=== PATIENT | male | born 1940 | race Caucasian/White ===

== ENCOUNTER 2017-01-03 08:58 | Outpatient (CLI) | payer MEDICARE, OTHER ==
[~2017-01-03] VITALS: Ht 185.4 cm; Wt 85.0 kg
[~2017-01-03 08:58] MED LIST: ADVAIR 250-501 EACH INH; ALDACTONE25 MG PO; AMOXICILLIN250 MG PO; ATROVENT I0.5 MG/2.5 INH; BACTRIM DS1 TAB PO; BREO ELLIPTA 11 EACH INH; CALCIUM 600 +1 EACH PO; CITRACAL+D(315M1 TAB PO; COLACE100 MG PO; COZAAR50 MG PO; DELTASONE10 MG PO; DELTASONE20 MG PO; DELTASONE5 MG PO; DIFLUCAN100 MG PO; DULCOLAX5 MG PO; HUMIBID LA (MU600 MG PO; INCRUSE ELLI62.5 MCG INH; IPRAT-ALBUT 0.5-3 ML INH; LACTINEX (FLORA1 TAB PO; LEVAQUIN 750 M750 MG PO; LEVAQUIN500 MG PO; LEVAQUIN750 MG PO; LEVOTHROID (SY88 MCG PO; MIRALAX17 GM PO; NORCO 5-325 MG1 TAB PO; OCEAN NASAL) (A44 ML NOSE; OXYGEN M-15 INH; PHENERGAN WITH15 ML PO; REMERON15 MG PO; SENOKOT S (S1 TABLET PO; TESSALON PERLE100 MG PO; THERAGRAN-M1 TAB PO; TYLENOL EXTRA500 MG PO; TYLENOL325 MG PO; ZANTAC (NON-FO150 MG PO
--- NOTE | 2017-01-03 09:15 | NUR ---
Patient admitted as a Clinical to a room for a blood transfusion and Vancomycin infusion. Patients Hgb was 7.9. Patient has a history of leukemia and NHL. Patient wears O2 at 2-3 l/nc at all times. Denies discomfort. Portacath to his R) upper chest patent with good blood return. Patient and state that he fell about 2 wks ago at home.
[2017-01-03] MEDS ORDERED: LEVAQUIN500 MG PO (11:21)
[2017-01-03] MEDS ORDERED: ALBUTEROL2.5 MG/31 INH (11:21)
--- NOTE | 2017-01-03 18:35 | NUR ---
Discharge instructions given to the patient and regarding his home medications and to return tomorrow afternoon for another Vancomycin infusion. Patient received 2 units of PRBC's and Vancomycin 1000 mg IV over 1 hr. Portacath was not flushed with saline after the Vancomycin infusion was complete per Dr orders. [facility] and accompanied by INSURANCE CLAIMS ADJUSTER and his for dismissal.
--- NOTE | 2017-01-04 13:45 | NUR ---
Patient returned today at 1345 from home for an outpt Vancomycin infusion. Portacath to his R) chest flushes well with good blood return. Patient short of breath with activity and wears O2 at 2-3 l/nc at all times. Denies discomfort. No changes to his physical assessment from yesterday. Vancomycin 1000 mg IV given over 1 hr. Portacath was not flushed with normal saline after the infusion per Dr orders. Patient up to the bathroom to void x 1. Patient dismissed per wheelchair and accompanied by CASE CONSULTANT and his .
[2017-01-07] MEDS ORDERED: KEFLEX500 MG PO (13:32)
[2017-01-07] MEDS ORDERED: KCL UD LIQ20 MEQ/15 PO (13:33)
== END 2017-01-06 21:00 ==
LOC: GMSU 08:58 → GMIS 08:58 → GMSU 18:35 → GMIS 18:35
DX: D64.9 Anemia, unspecified (principal); D70.9 Neutropenia, unspecified; R50.9 Fever, unspecified; R63.4 Abnormal weight loss; R10.32 Left lower quadrant pain; R53.1 Weakness; R29.6 Repeated falls
CPT/HCPCS: J0696; J1200; J2001; J3370; J7040; J7050; P9053; P9058

== ENCOUNTER 2017-01-04 13:24 | Outpatient (CLI) | payer MEDICARE, OTHER ==
[~2017-01-04 13:24] MED LIST changes: +ALBUTEROL2.5 MG/31 INH
== END 2017-01-04 15:40 | disposition disaster alternative care site (69) ==
LOC: GMIS 13:24 → GMSU 13:24 → GMIS 15:40
DX: D46.22 Refractory anemia with excess of blasts 2 (principal); D70.9 Neutropenia, unspecified; R50.9 Fever, unspecified; R53.1 Weakness; R10.32 Left lower quadrant pain; R29.6 Repeated falls
CPT/HCPCS: J3370; J7050

== ENCOUNTER → 2017-01-06 | Outpatient (CLI) | payer MEDICARE, OTHER ==
[~2017-01-06] MED LIST changes: +KCL UD LIQ20 MEQ/15 PO; +KEFLEX500 MG PO
== END | disposition disaster alternative care site (69) ==
LOC: GOPP 12:30 → GMIS 13:29
DX: D46.22 Refractory anemia with excess of blasts 2 (principal); R58 Hemorrhage, not elsewhere classified
CPT/HCPCS: J0696; J2001; J7040; P9053

== ENCOUNTER 2017-01-07 09:44 | Inpatient (IN) | payer MEDICARE, OTHER ==
[~2017-01-07] VITALS: Ht 185.4 cm; Wt 87.9 kg
--- NOTE | ~2017-01-07 | ER ---
PATIENT'S NAME: SHYLA HEARD [facility] AGE: 76 Y [address] ROOM: [place] [address] LOCATION: GPCU ADMIT DATE: 01/07/2017 ER/Outpatient Report DISCHARGE DATE: FAMILY PHYSICIAN: Roberto Carlos Mullen MD ATTENDING PHYSICIAN: MARCELLUS DRAKE TIME OF ARRIVAL: 0944 hours. TIME SEEN: 0948 hours. IDENTIFICATION: A 76-year-old male. CHIEF COMPLAINT: Bleeding from port removal site. 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 He received chemotherapy and has been in remission since that time. The patient now has a refractory anemia with excessive blasts versus developing acute nonlymphocytic leukemia. He also has myelodysplastic syndrome. He had packed red blood cells transfused last weekend. Yesterday, his platelet count was 31,000 and he had 1 unit of platelets and has port removed by Dr. Martin for cellulitis around that port. Prior to that, he had received some vancomycin through the port for Coag-negative Staph bacteremia and port cellulitis. It seemed to be worsening, not improving, so they did have the port removed yesterday. Throughout the night, he had bleeding that has not been controlled despite pressure. On arrival today, the patient is complaining of pain around that port. He denies any other pain or problems. ALLERGIES: NO KNOWN DRUG ALLERGIES. CURRENT MEDICATIONS: 1. Breo-Ellipta 100 mcg/25 inhalation q.a.m. 2. Calcium plus D3 600/200 q.a.m. 3. Colace 100 mg twice a day. 4. Fluconazole 100 mg daily. 5. Incruse-Ellipta 62.5 mcg q.a.m. 6. Keflex 500 mg 4 times a day for 10 days. 7. Levofloxacin 500 mg daily. 8. Levothyroxine 88 mcg daily. PATIENT'S NAME: SHYLA HEARD [facility] AGE: 76 Y [address] ROOM: [place] [address] LOCATION: GPCU ADMIT DATE: 01/07/2017 ER/Outpatient Report DISCHARGE DATE: FAMILY PHYSICIAN: Roberto Carlos Mullen MD ATTENDING PHYSICIAN: MARCELLUS DRAKE 9. KCl 20 mEq t.i.d. 10. Ranitidine 150 mg b.i.d. 11. Tylenol Extra 500 mg q.a.m. MEDICAL PROBLEMS: 1. Myelodysplastic syndrome/acute nonlymphocytic leukemia. 2. History of immunoblastic diffuse large B-cell lymphoma in remission. 3. Colonic polyposis. 4. Colonic diverticulosis. 5. COPD. 6. Hypothyroidism. 7. Gastroesophageal reflux disease. 8. Osteoarthritis. 9. Right port cellulitis. 10. Coag-negative Staph bacteremia. 11. Cataracts. 12. Mixed hyperlipidemia. 13. Hypertension. 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 15. Cluster headaches. 16. Celiac sprue. 17. Grade 1 diastolic dysfunction. 18. Moderate aortic regurgitation. 19. Atherosclerotic vascular disease leading to an abdominal aneurysm repair in 2013. 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 SOCIAL HISTORY: The patient is . He lives in [place], [place], a son in [place], [place], a son in [place], and a son in [place]. Tobacco use, he is a former smoker. Alcohol use, denies. Drug use, denies. IMMUNIZATIONS: Tetanus is current, pneumococcal vaccine in 2010, influenza vaccine given this year. FAMILY HISTORY: Father of acute leukemia at age 51. Mother of diabetes mellitus at age 67. PATIENT'S NAME: SHYLA HEARD [facility] AGE: 76 Y [address] ROOM: [id number] [place], [place] [address] LOCATION: [facility] ADMIT DATE: 01/07/2017 ER/Outpatient Report DISCHARGE DATE: FAMILY PHYSICIAN: Roberto Carlos Mullen MD ATTENDING PHYSICIAN: MARCELLUS DRAKE REVIEW OF SYSTEMS: All systems reviewed and negative other than what is noted in the HPI. PHYSICAL EXAMINATION: VITAL SIGNS: Weight 86 kg. Pulse 92, respirations 22, temp 99.3, sats 95%, and blood pressure 135/85. GENERAL: This is a 76-year-old male in no acute distress. HEENT: Head: Normocephalic, atraumatic. Ears: TMs translucent both ears. Eyes: Pupils equal and reactive to light and accommodation. Extraocular movements intact. Nose: Mucosa pink. No lesions. Mouth: No lesions. Pharynx benign. NECK: Supple. No lymphadenopathy. LUNGS: Clear to auscultation. HEART: Regular rate and rhythm. ABDOMEN: Soft, nondistended, nontender. SKIN: Granite, warm, and dry. EMERGENCY DEPARTMENT COURSE: The patient has an incision where the Port-A-Cath was removed in his right upper chest that does have active bleeding from that site. Direct pressure was held for 15 minutes and the bleeding improved. It did not completely resolve, but improved significantly. We did place Surgicel pad and a pressure dressing over this with no further bleeding noted. LABORATORY DATA: Lab work was obtained. Chest x-ray, no acute process, pending Radiology over- read. Lactate elevated at 2.1. Sodium 141, potassium 2.8, which is stable from yesterday, chloride 104, CO2 26, BUN 13, creatinine 2.0, which is up from 1.9 yesterday, up from 0.9 October of 2016, and blood sugar 92. Albumin low at 2.7, AST 63, ALT less than 10, hemoglobin 9.8, daughter says it was 10.6 in the office yesterday, hematocrit 30.2, platelets 31, platelet count reportedly yesterday was 15,000, prior to the platelets, 80,000 after the platelets. White blood cell count today 21.7, white blood cell count yesterday was 13.4. White blood cell differential includes 6% segs or 1300 absolute segs, 1500 total neutrophil count, and lymphocytes 26%. Procalcitonin elevated at 0.32. UA specific gravity 1.005, pH 7, rare white cells, 5-10 red cells, and 0-2 epithelial cells. Blood cultures x2 pending. Urine culture pending. IMPRESSION: 1. Bleeding from Port-A-Cath site controlled with dressing and pressure. 2. Myelodysplasia with significant thrombocytopenia 1 unit of platelets have been ordered. 3. Hypokalemia KCl 40 mEq and 250 of normal saline to run over 4 hours. 4. Right Port-A-Cath site cellulitis with possible sepsis, vancomycin per pharmacy protocol, cefepime 2 mg IV now. Cultures are all pending. PATIENT'S NAME: SHYLA HEARD [facility] AGE: 76 Y [address] ROOM: [place] [address] LOCATION: [facility] ADMIT DATE: 01/07/2017 ER/Outpatient Report DISCHARGE DATE: FAMILY PHYSICIAN: Roberto Carlos Mullen MD ATTENDING PHYSICIAN: MARCELLUS DRAKE 5. Myelodysplasia, hemoglobin appears to be stable at this time. 6. Acute nonlymphocytic leukemia. PLAN: Plan for admission per Hospitalist Service and Dr. Ruggiero his oncologist was notified. The patient understands and agrees and all questions have been answered. MD SHARMILA HAMMER/modl /[id number] d: 01/08/17 0122 t: 01/08/17 1443, OUTPATIENT REPORT
--- NOTE | ~2017-01-07 | HP ---
PATIENT'S NAME: SHYLA HEARD [facility] AGE: 76 Y [address] ROOM: [address] [place], [place] [address] LOCATION: GPCU ADMIT DATE: 01/07/2017 History & Physical DISCHARGE DATE: FAMILY PHYSICIAN: Roberto Carlos Mullen MD ATTENDING PHYSICIAN: MARCELLUS DRAKE DATE OF SERVICE: CHIEF COMPLAINT: Sepsis, pancytopenia, neutropenia. HISTORY OF PRESENT ILLNESS: This is a 76-year-old male with history of AML, on chemo, and closely follows up with Dr. Ruggiero, who presents to the emergency room with complaints of bleeding from the chest port site. The patient had just had a port catheter removed yesterday because of concerns of an infection to the site. The patient is also known to have pancytopenia related to his ongoing treatment of chemo. The patient has been on antibiotic for the last 2 weeks for concerns of cellulitis and an infection stemming from the port access site on his right subclavian site, and he had been on vancomycin and Levaquin for 2 weeks. Despite treatment with antibiotics for several days, the patient continued to have ongoing concern for un-resolving infection, and at that point it was decided the port to be removed. Shortly after the port was removed, the patient returns to the emergency room here today due to having ongoing bleeding from the site. During evaluation at the emergency room, the patient was also noted to have a white blood cell count of 21,000 which is significantly elevated from what is baseline for him. The patient also appears more lethargic and ill-appearing overall from all these. The patient has not had chemo in the last 4 weeks, mostly due to complications stemming from concern for a bloodstream infection treatment required for that. During my visit today, the patient states that he feels like a lot has been going on and he is kind of exhausted with everything, but does not in particular mention any specific symptoms. Denies any new cough, chest pain, shortness of breath, abdominal pain, nausea, vomiting, diarrhea, or constipation. He has had problems with poor appetite in the past several weeks, but particularly worse in the past 2 weeks. PAST MEDICAL HISTORY: 1. AML. 2. COPD. 3. Chronic respiratory failure. SOCIAL HISTORY: The patient is a former smoker. Denies any use of alcohol or drug abuse. PATIENT'S NAME: SHYLA HEARD [facility] AGE: 76 Y [address] ROOM: [address] [place] [address] LOCATION: GPCU ADMIT DATE: 01/07/2017 History & Physical DISCHARGE DATE: FAMILY PHYSICIAN: Roberto Carlos Mullen MD ATTENDING PHYSICIAN: MARCELLUS DRAKE FAMILY HISTORY: The patient any history of cancer, heart disease, blood pressure, or stroke in the family. REVIEW OF SYSTEMS: Ten-point review of systems was conducted and were all negative, except as mentioned in the HPI. PHYSICAL EXAMINATION: VITAL SIGNS. Blood pressure 155/85, pulse 92, respiratory rate 22, temperature 99.3, and saturating 95% on room air. GENERAL APPEARANCE: The patient is lethargic-appearing, but in no apparent distress. Awake, alert, and oriented x3. HEENT: Dry mucous membranes. Exhibits scleral icterus and conjunctival pallor. SKIN: Has diffuse jaundice. HEART: S1, S2, regular rate and rhythm. CHEST: Coarse breath sounds, but clear to auscultation bilaterally. ABDOMEN: Soft, nontender, and nondistended. Positive bowel sounds. NEURO: Grossly nonfocal. EXTREMITIES: Without edema. MUSCULOSKELETAL: No joint pain or muscle pain. LABS SIGNIFICANT: White blood cells 21.7, ANC 1.5. ASSESSMENT/PLAN: 1. Sepsis, severe. This is in the setting of pancytopenia and immune compromise due to ongoing acute myeloid leukemia and chemotherapy. There is a concern for an infection stemming from an infected port, which was removed yesterday. The patient has been getting Levaquin and electrolytes as an outpatient. Due to him not getting better clinically, I will broaden antibiotics with vancomycin and cefepime and blood cultures and urine culture again as well. 2. Acute myelogenous leukemia. In the middle of 10-cycle chemotherapy, but has not had chemo in the last 4 weeks due to ongoing concerns for an infection. Dr. Ruggiero is his oncologist and will consult him. 3. Acute kidney injury. This is related to dehydration from poor p.o. intake. We will give IV fluids, monitor in's and out's, and recheck kidney function in the morning. 4. Thrombocytopenia with active blood loss. Prepare 1 pack of platelets and transfuse. Last platelet was 31. 5. Hypokalemia. We would replace in the IV form and recheck levels. 6. Pancytopenia. 7. Deep venous thrombosis prophylaxis. Leave the SCDs. PATIENT'S NAME: SHYLA HEARD [facility] AGE: 76 Y [address] ROOM: [address] [place] [address] [facility] ADMIT DATE: 01/07/2017 History & Physical DISCHARGE DATE: FAMILY PHYSICIAN: Roberto Carlos Mullen MD ATTENDING PHYSICIAN: MARCELLUS DRAKE 8. Chronic obstructive pulmonary disease. Continue O2 supplementation. The patient is asymptomatic from a respiratory standpoint. MARCELLUS DRAKE MD BG/modl /[id number] D: [id number] T: [id number] HISTORY & PHYSICAL
--- NOTE | ~2017-01-07 | DS ---
PATIENT'S NAME: SHYLA HEARD [facility] AGE: 76 Y [address] ROOM: [place] [address] LOCATION: GPCU ADMIT DATE: 01/07/2017 Discharge Summary DISCHARGE DATE: 01/15/2017 FAMILY PHYSICIAN: Roberto Carlos Mullen MD ATTENDING PHYSICIAN: Joshua Roche SUMMARY DATE OF : 01/15/2017. PRIMARY DIAGNOSES: 1. Acute nonlymphocytic leukemia. 2. Port site infection with staphylococcus epidermidis, not septic. 3. Thrombocytopenia secondary to myelodysplastic syndrome. 4. Chronic hypoxic respiratory failure. 5. Chronic obstructive pulmonary disease. 6. Pancytopenia secondary to chemotherapy. 7. Hypokalemia. OPERATIONS AND PROCEDURES: None. HISTORY OF ILLNESS/REASON FOR ADMISSION: Please refer to the original H and P dictated on 01/07/[address] Roche. HOSPITAL COURSE: The patient was admitted to the hospital as noted above with a presumptive diagnosis of high-grade myelodysplastic syndrome and suspected sepsis. There was concern for port site infection, and he apparently did grow Staph epidermidis from this site. Blood cultures remained negative. Ultimately, he was felt to not be septic nor did he prove to be bacteremic. Antibiotics were eventually discontinued. His clinical condition gradually deteriorated. He was pancytopenic, and Hematology-Oncology did follow and provide some additional medical recommendations. There was some discussion regarding the possibility of resuming chemotherapy. However, it was felt that he was unable to tolerate any aggressive treatments, and that treatment options had essentially been exhausted. Palliative Care was involved, and eventually, the family requested to make him comfort cares only. Because of his fairly quick decline and poor clinical status, we decided to keep him on the progressive care unit. As expected, his clinical condition continued to deteriorate, and he became progressively more apneic and less responsive. On 2016, he was found to be without pulse or respirations and pronounced . Family were present and expressed no other concerns or questions. TIME OF : 2225 hours on 01/15/2017. PATIENT'S NAME: SHYLA HEARD [facility] AGE: 76 Y [address] ROOM: [place] [address] LOCATION: GPCU ADMIT DATE: 01/07/2017 Discharge Summary DISCHARGE DATE: 01/15/2017 FAMILY PHYSICIAN: Roberto Carlos Mullen MD ATTENDING PHYSICIAN: Joshua Roche PIETRO J MD SARAH LOPEZ/car /[id number] d: 02/12/17 0433 t: 02/13/17 0804, DISCHARGE SUMMARY
--- NOTE | ~2017-01-07 | CON ---
PATIENT'S NAME: SHYLA HEARD [facility] AGE: 76 Y [address] ROOM: [place] [address] LOCATION: [facility] ADMIT DATE: 01/07/2017 Consultation DISCHARGE DATE: FAMILY PHYSICIAN: Roberto Carlos Mullen MD ATTENDING PHYSICIAN: MARCELLUS DRAKE DATE OF CONSULTATION: 01/08/2017 PALLIATIVE CARE CONSULTATION LOCATION: [place] [address]. REFERRING PHYSICIAN: Dr. Caldwell. REASON FOR CONSULTATION: This is a palliative care referral for end-of-life discussion and patient and family support. HISTORY OF PRESENT ILLNESS: This 76-year-old male was admitted on 01/07/2017 with bleeding from a Port-A- Cath removal site. He has a known history of stage III immunoblastic diffuse large-cell lymphoma, which presented in his left axillary lymphadenopathy in 1994. He was receiving chemotherapy and went to remission. 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 He also has myelodysplastic syndrome. He has been getting transfusions of red blood cells, which he had last week and on 01/06/2017. His platelet count on admission was 31,000, and he had one unit of platelets. The patient also has elevated white count, questionable sepsis. He is on antibiotics. Currently, the patient denies any pain or discomfort. No nausea or vomiting, just severe fatigue. Any activity makes the patient short of breath and tires out just even standing up with walker. He had been living at home and ambulating with his walker at home but has been declining over the last few days prior to admission. Last bowel movement was on 01/08/2017. Appetite has been poor. He is down with recent diagnosis and talking with Dr. Caldwell on recurrence of his cancer and probable no other chemo. PAST MEDICAL HISTORY: AML; COPD; chronic respiratory failure; colonic polyposis in 2015 and diverticulitis in 2015; hypothyroidism; GERD; osteoarthritis; early cataracts; peripheral vascular disease due to Vincristine associated with mild ataxia; cluster headaches, resolved; celiac sprue; grade 1 diastolic dysfunction noted on echocardiogram; moderate aortic regurgitation noted on echogram, PATIENT'S NAME: SHYLA HEARD [facility] AGE: 76 Y [address] ROOM: [place] [address] LOCATION: [facility] ADMIT DATE: 01/07/2017 Consultation DISCHARGE DATE: FAMILY PHYSICIAN: Roberto Carlos Mullen MD ATTENDING PHYSICIAN: MARCELLUS DRAKE arthrosclerotic vascular disease leading to abdominal aortic aneurysm, repaired in 2013. 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 SOCIAL HISTORY: He is . Lives by [place]. 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 They have a son in [place], [place], and a son in [place], and one in [place]. They have a daughter in [place] and one in [place]. Former tobacco use. FAMILY HISTORY: Father of acute leukemia at age 51. Mother of diabetes mellitus at the age of 67. REVIEW OF SYSTEMS: Review of systems was done and is negative except as mentioned in the HPI and listed below. GI: No nausea or vomiting. Does complain of some mid epigastric pain and discomfort comes and goes, sharp. Last bowel movement was on 01/08/2017. Appetite is decreased and not eating much. : No dysuria. No frequency. He is incontinent at times due to physical functional status. NEURO: Grossly intact. Tires easily. PHYSICAL EXAMINATION: VITAL SIGNS: Temp 97.2, pulse 78, respirations 20, blood pressure 155/84, O2 sats 94% on oxygen 2 L. He is 6 feet 1 inch, weighs 186 pounds with a BMI of 24.4. GENERAL: Alert and oriented, in no acute distress. Shortness of breath and fatigue with much exertion now. SKIN: Warm and dry. Color pale. No ecchymotic areas noted on arms. HEENT: Head: Normocephalic and atraumatic. Sclerae are nonicteric. Conjunctivae are pale and pink. Mouth is pink and moist without exudate. No white patches or lesions noted under mouth and pharynx. PATIENT'S NAME: SHYLA HEARD [facility] AGE: 76 Y [address] ROOM: [facility] [place] [address] LOCATION: [facility] ADMIT DATE: 01/07/2017 Consultation DISCHARGE DATE: FAMILY PHYSICIAN: Roberto Carlos Mullen MD ATTENDING PHYSICIAN: MARCELLUS DRAKE LYMPH: No cervical adenopathy or thyromegaly. RESPIRATORY: Clear to auscultation. Breath sounds are even and regular. Labored at 28 at rest. CHEST: Large bandage noted on right upper chest from port removal. Dry and intact. CARDIAC: S1, S2 without murmurs or bruits. ABDOMEN: Soft and nontender. Positive bowel tones. No hepatosplenomegaly. NEUROLOGIC: Grossly intact. MUSCULOSKELETAL: Appropriate range of motion. Decreased muscle mass in lower extremities. EXTREMITIES: No cyanosis or deformities. Palliative performance scale is 50%, mainly sitting and lying, unable to do any work, extensive disease. Total care, intake is reduced, conscious level is full. LABORATORY DATA: Sodium 143, potassium 3.1, BUN 12, creatinine 1.0, albumin is 2.1. AST is 63, LDH is 989. White count is 20.5, hemoglobin 7.6, hematocrit 23.9, and 33,000 platelets. He is receiving 1 unit of packed red blood cells. IMPRESSION: 1. Weakness and severe fatigue. 2. Gastroesophageal reflux disease. 3. Emotional distress. PLAN: Met with the patient, his daughter, his , and daughter. Discussed the patient's overall condition, his understanding of what doctors have been telling him. The Lin and daughter is Maty. discussed the MDS, recurrent transfusions, needing more transfusion in less than a week, development of sepsis, on antibiotics, and overall declining status. The patient has a fairly good understanding of condition except he thinks that there may be chemotherapy in the future. DISCUSSION AND GOALS: 1. Goal to get over infection. 2. To try to get stronger. 3. To get back home and be with his and live as long as he can. 4. Code status and advance directive. The patient is a do not attempt resuscitation, has no advance directive. Discussed ways of getting an advance directive and gave a brochure on [employer], answered questions, and concerns on advanced directive. RECOMMENDATIONS: PATIENT'S NAME: SHYLA HEARD [facility] AGE: 76 Y [address] ROOM: [place] [address] LOCATION: [facility] ADMIT DATE: 01/07/2017 Consultation DISCHARGE DATE: FAMILY PHYSICIAN: Roberto Carlos Mullen MD ATTENDING PHYSICIAN: MARCELLUS DRAKE 1. GERD, he is on Protonix. May consider Maalox 15 mL p.r.n. heartburn, fatigue, and weakness. He is getting transfusion. He is on antibiotics. He may be too weak and short of breath to get physical therapy. We will try to order to see if it helps the patient or if he is unable to do it. Support system. The patient has 5 kids. One son in [facility], and a daughter in [place]. He has good support in the home. is his caregiver. Discussed options if the patient declines. Discussed options of home health care with transfusions continuing versus hospice. We will discuss the POLST form and hospice more after Dr. Caldwell sees him again tomorrow. Total time was 65 minutes with 55 minutes for counseling and coordination of care. LEATHA MURPHY NP FOR MD STERLING WILSON/car /[id number] d: 01/09/172232 t: 01/19/17 07, CONSULTATION REPORT
--- NOTE | ~2017-01-07 | CON ---
PATIENT'S NAME: FRANK MCCRAY [facility] AGE: 76 Y [address] ROOM: [id number] [place] [address] LOCATION: [facility] ADMIT DATE: 01/07/2017 Consultation DISCHARGE DATE: FAMILY PHYSICIAN: Roberto Carlos Mullen MD ATTENDING PHYSICIAN: MARCELLUS ROCHE REFERRING PHYSICIAN: Butch Ruggiero MD Consult to Dr. Roche. HISTORY OF PRESENT ILLNESS: Frank Mccray is a 76-year-old man, who was admitted to the hospital with poorly controlled bleeding from a surgical site, in the setting of thrombocytopenia related to a high-grade myelodysplastic syndrome, under treatment. The patient is well known to the [facility]. The last progress note dated 01/06/2017 is appended to the chart. The patient has been under therapy for 3-1/2 weeks for a port site infection with ceftriaxone, cephalexin, and vancomycin. The port site infection did not respond to therapy as hoped. Blood cultures from the port (but not the peripheral blood) revealed the presence of Staphylococcus epidermidis. The inflammation and discomfort did not resolve with prolonged outpatient empirical therapy. It was decided that the port needed to be removed. On 01/06/2017, the patient had a busy day. The patient got vancomycin at [facility] as well as IV potassium. The patient then went to the [facility] for platelet transfusion. The patient then went to the [facility] Dr. Fam Martin removed the port, and the patient went home. On the day of admission, around 0415, the patient woke up and was "lying in a pool of blood." Blood was oozing from the port site. The family applied tape and gauze and called Dr. Ruggiero who instructed them to call again if there was persistent oozing after they applied pressure for 1 hour. The family applied pressure for an hour and things improved. However, several hours later, the patient woke up again with oozing from the port site. The son worked on this and then he took the patient to the [facility] Dr. Martin was not there, so the nurses instructed the patient to report to the [facility] Room. In the [facility] Room, pressure was applied to the site by Dr. Rosa Maria Hernandes. The bleeding from the port site was controlled with dressing and pressure. It was felt prudent to admit him for observation to make sure the bleeding did not recur and felt prudent to evaluate the possibility of sepsis. The patient was admitted on Dr. Roche's hospitalist service. PATIENT'S NAME: FRANK MCCRAY [facility] AGE: 76 Y [address] ROOM: [address] [place] [id number] LOCATION: [facility] ADMIT DATE: 01/07/2017 Consultation DISCHARGE DATE: FAMILY PHYSICIAN: Roberto Carlos Mullen MD ATTENDING PHYSICIAN: MARCELLUS ROCHE initiated therapy with cefepime and linezolid and lupis blood cultures. Upon admission, the urinalysis was unremarkable. The white blood cell count was 29,700, the hemoglobin was 9.8, the MCV was 85, and the platelets were 31,000. The lab techs reported 48% nucleated red blood cells. There were 6 segs and 1 band and 26 lymphs. It should be noted that the platelets were 15,000 prior to the port removal, but then aniya to 80,000 with the transfusions that were required before the port could be removed. The CMS was remarkable for an eGFR of 33 with a creatinine of 2. The albumin was 2.7 g/dL and the potassium was 2.8 mmol/L. The LDH is 989 international units/L. The uric acid is 11.9 mg/dL. The patient is feeling reasonably well at this point. Active problems chronic and diagnosed and acute medical illnesses resolved, past surgeries, injuries are outlined on the accompanying [facility] progress note and will not be repeated here. MEDICATIONS UPON ADMISSION: 1. Acetaminophen. 2. Albuterol sulfate. 3. Calcium carbonate. 4. Cephalexin. 5. Docusate sodium. 6. Fluconazole. 7. Fluticasone/vilanterol. 8. Levofloxacin. 9. Levothyroxine sodium. 10. Polyethylene glycol. 11. KCl. 12. Ranitidine. 13. Saline nasal spray. REVIEW OF SYMPTOMS: The patient has been fatigued. He has been dehydrated. He has still been at home. He has fallen on a couple of occasions in the night and has needed standby and assist, and uses a walker. His appetite and weight are the same, but he has dyspnea on exertion if he walks 5 to 10 steps. He has persistent dysphagia at his Zen's apple and solids are sticking. The patient had dry heaves once or twice a day and nocturia once to twice a day. He is currently on day 32 of his 11th cycle of azacitidine. His transfusion requirements have increased. PHYSICAL EXAMINATION: VITAL SIGNS: Pulse 80 and regular, blood pressure 175/85, respiratory rate 88, temperature 99.2. Height 71 inches, weight 193 pounds (87.5 kg), BMI 25.5 PATIENT'S NAME: FRANK MCCRAY [facility] AGE: 76 Y [address] ROOM: [id number] [place] [id number] LOCATION: [facility] ADMIT DATE: 01/07/2017 Consultation DISCHARGE DATE: FAMILY PHYSICIAN: Roberto Carlos Mullen MD ATTENDING PHYSICIAN: MARCELLUS ROCHE kg/m2. GENERAL: A well-developed, slightly overweight, 76-year-old man, chronically ill. HEENT: Acne rosacea. Edentulous. LYMPH NODES: None palpable. NECK: Without JVD or carotid bruits. SKIN: Ecchymoses on the dorsal forearms. CHEST: Decreased breath sounds bilaterally. Chest wall, tenderness with palpation of the gauze bandage site. CV: Regular rhythm. No murmurs, bruits, or adventitious sounds. ABDOMEN: No masses, tenderness, or megaly. GENITAL AND RECTAL: Not examined. EXTREMITIES: Without peripheral edema. Pulses 2+ throughout. NEURO: The patient is alert and oriented. He moves all 4 extremities. IMPRESSION: 1. A 76-year-old man admitted for observation following a stormy postoperative course with oozing after a Port removal yesterday. 2. High-grade myelodysplastic syndrome. The patient is developing leukocytosis and refractory hypokalemia. Review of the peripheral smear reveals 17% blasts as well as nucleated red blood cells. 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 The elevated LDH and uric acid are compatible with this as well. In addition, this is the natural history of the disease to be expected. At this point, azacitidine is no longer forestalling the development of acute leukemia and there is no dependably helpful alternative. The patient is not a good candidate for clinical trial. Oral hydroxyurea to prevent symptoms of hyperleukocytosis could be employed. 3. The patient has been battling Staphylococcus epidermidis, catheter- related tunnel infection. Removing the catheter generally controls the symptoms in patients who have not been having bacteremia. It is possible the patient does have bacteremia, but it is likely he does not. It is controversial whether antibiotics need to be continued in this situation. Given his guarded prognosis with the acute leukemia, removing the catheter and just monitoring for signs and symptoms of bacteremia or endocarditis would be reasonable. Placing him on a course of expensive antibiotics is not necessarily warranted. PLAN: DIAGNOSTIC: No further testing, just as needed for comfort treatment. TREATMENT: At this point, the patient wants to continue to get platelets and red blood cell support, so hospice would not necessarily be employed but home health would. PATIENT EDUCATION: Discussed these developments. Discussed the need for a palliative care PATIENT'S NAME: FRANK MCCRAY [facility] AGE: 76 Y [address] ROOM: [place] [address] [facility] ADMIT DATE: 01/07/2017 Consultation DISCHARGE DATE: FAMILY PHYSICIAN: Roberto Carlos Mullen MD ATTENDING PHYSICIAN: MARCELLUS ROCHE consult and the futility of CPR in this situation. MELONIE AGUILERA MD [facility]/modl /[id number] CC: Roberto Carlos Mullen MD d: 01/10/17 0125 t: 01/12/17 1846, CONSULTATION REPORT
[~2017-01-07 09:44] MED LIST changes: -KCL UD LIQ20 MEQ/15 PO; -KEFLEX500 MG PO
[2017-01-07 10:23] LABS: HEMATOCRIT 30.2 % (37.0-53.0); HEMOGLOBIN 9.8 g/dL (11.0-16.0); MCH 27.5 pg (27.0-34.0); MCHC 32.5 gm/dL (32.0-36.5); MCV 84.8 fl (83.0-98.0); RBC 3.56 M/uL (3.50-5.50)
[2017-01-07 10:28] LABS: WBC 21.7 K/uL (4.0-11.0)
[2017-01-07 10:29] LABS: INR - (THERAPEUTIC) 1.2 (0.9-1.1); PLATELET COUNT 31 K/uL (150-450); PROTIME 12.7 SECONDS (9.6-11.1); PTT 27 SECONDS (25-32)
[2017-01-07 10:41] LABS: ALBUMIN 2.7 gm/dL (3.5-5.0); ALK PHOS 76 IU/L (33-138); AST 63 IU/L (10-40); BLOOD UREA NITROGEN 13 mg/dL (6-24); CALCIUM 8.2 mg/dL (8.5-10.5); CHLORIDE 104 mMol/L (96-110); CO2 26 mMol/L (22-32); SODIUM 141 mMol/L (135-145); TOTAL PROTEIN 6.9 g/dL (6.0-8.4)
[2017-01-07 10:43] LABS: ALT < 10 IU/L (12-78); ANION GAP 13.8 (10.0-19.0); ESTIMATED GFR (MDRD EQUATION) 33; POTASSIUM 2.8 mMol/L (3.7-5.1)
[2017-01-07 11:39] LABS: ABSOLUTE NEUTROPHIL CT (ANC) 1.5 K/uL (1.4-9.0); BANDED NEUTROPHIL # 0.2 K/uL (0.0-0.1); BANDED NEUTROPHILS % 1 %; LYMPHOCYTE # 5.6 K/uL (0.8-4.0); LYMPHOCYTE % 26 %; MONOCYTE # 14.8 K/uL (0.0-1.0); SEGMENTED NEUTROPHIL # 1.3 K/uL (1.4-9.0); SEGMENTED NEUTROPHIL % 6 %
[2017-01-07] MEDS ORDERED: KEFLEX500 MG PO (13:32)
[2017-01-07] MEDS ORDERED: KCL UD LIQ20 MEQ/15 PO (13:33)
--- NOTE | 2017-01-07 13:37 | NUR ---
PT is 76 y/o male admit for infected port a cath site/sepsis/cellulitis for hospitalist. Pt alert and oriented x3. Resides at home with . PT has hx Non-Hodgkins lymphoma in 1993, dx of leukemia in Nov 2015 w ongoing chemo tx, AAA with repair,hyperlipids,pneumonia,COPD,O2 continuous at 2-3 liters, bronchitis,gerd,arthritis. No med allergies. Gluten intolerance. Pt had his port a cath removed in office yesterday at the request of due to infection. reports pt woke her up to help him to the bathroom around 0400 and she noticed his former port site bleeding. She checked the bed and there was a large area where the site had bled onto the bedding. She called who gave her instructions to apply pressure. She did this but couldn't get it to stop. Family brought him to [facility] this am and then to ED.
[2017-01-07 16:40] LABS: BILIRUBIN URINE NEGATIVE (NEGATIVE); BLOOD URINE 150 /UL (NEGATIVE); GLUCOSE URINE NEGATIVE (NEGATIVE); KETONE URINE NEGATIVE (NEGATIVE); LEUKOCYTES URINE NEGATIVE /UL (NEGATIVE); NITRITE URINE NEGATIVE (NEGATIVE); PROTEIN URINE 30 mg/dL (NEGATIVE); SPEC GRAVITY URINE 1.005 (1.003-1.035); UROBILINOGEN URINE NORMAL (NORMAL)
[2017-01-07 17:13] LABS: COLOR URINE YELLOW (YELLOW); TURBIDITY URINE CLEAR (CLEAR)
[2017-01-07 17:15] LABS: WBC URINE RARE #/HPF (NEGATIVE)
[2017-01-07 17:16] LABS: BACTERIA URINE RARE (NEGATIVE); EPITHELIAL URINE 0-2 #/HPF (NEGATIVE)
--- NOTE | 2017-01-07 18:48 | NUR ---
Significant event: A&Ox3. VSS. Pressure dressing to R) chest, clean/dry/intact. Lung sounds clear/diminished, on 3L NC. Had IV K+ replacement. 1 unit of platelets given. Vancomycin and cefipime given. Denies pain. Decreased appetite. Code status changed to DNR, palliative consult. Follow Up: Continue current POC
--- NOTE | 2017-01-08 05:13 | NUR ---
Significant event: Patient A/O x 3. Dressing to right chest area is C/D/I. VSS on 2-3 L NC with sats in the mid 90's. Uses urinal at bedside with assistance. IVF infusing at 100ml/hr to L) PFA. No other complaints throughout the shift.
[2017-01-08 05:42] LABS: ALBUMIN 2.1 gm/dL (3.5-5.0); ANION GAP 14.1 (10.0-19.0); CALCIUM 7.6 mg/dL (8.5-10.5); CREATININE 1.9 mg/dL (0.6-1.3); MAGNESIUM 1.7 mg/dL (1.3-2.6); PHOSPHORUS 2.7 mg/dL (2.5-4.9); POTASSIUM 3.1 mMol/L (3.7-5.1)
[2017-01-08 06:19] LABS: MCV 85.4 fl (83.0-98.0); RDW-CV 18.8 % (11.9-14.6)
[2017-01-08 06:20] LABS: WBC 20.5 K/uL (4.0-11.0)
[2017-01-08 06:22] LABS: HEMATOCRIT 23.9 % (37.0-53.0); HEMOGLOBIN 7.6 g/dL (11.0-16.0); MCH 27.1 pg (27.0-34.0); MCHC 31.8 gm/dL (32.0-36.5); PLATELET COUNT 33 K/uL (150-450)
[2017-01-08 06:59] LABS: ABSOLUTE NEUTROPHIL CT (ANC) 0.4 K/uL (1.4-9.0); LYMPHOCYTE # 3.3 K/uL (0.8-4.0); LYMPHOCYTE % 13 %; MONOCYTE # 13.9 K/uL (0.0-1.0); SEGMENTED NEUTROPHIL # 0.4 K/uL (1.4-9.0); SEGMENTED NEUTROPHIL % 2 %
--- NOTE | 2017-01-08 13:00 | NUR ---
Introduced self and role of care management to patient, his and a daughter. Patient lives with near [place]. Patient has a walker and w/c at home. He uses O2 at home. Talked with them about discharge plans. They are planning on him going home when ready for discharge. Talked to them about HHC. says they enjoy going for a drive everyday and he doesn't want to be homebound. They have a daughter who lives a few miles from them and brings them their evening meal everyday. They have other children and grandchildren in the area and they help as needed. Will follow.
--- NOTE | 2017-01-08 15:51 | NUR ---
Significant event: A&Ox3. HR 70's. Afebrile. Hemoglobin this AM was 7.6, did transfuse 1 unit of blood, waiting on new results of HH. Patient did have some nausea, along with 50 ml of emesis this AM, zofran given at 0900, no nausea since. C/O epigastric pain this AM that lasted less than one minute, maalox given, has not C/O pain since. SBP 130-160's. Potassium replaced orally 40 mg x 2 doses. Dressing to R) chest remains intact, no drainage. Up to chair one assist. Had smear of stool today. Palliative in to see patient. Denies pain at this time. and daughter at bedside. Zyvox started and vancomycin discontinued. Follow Up: Monitor hemoglobin level & R) incision site
[2017-01-08 16:02] LABS: HEMATOCRIT 28.2 % (37.0-53.0)
[2017-01-08 16:04] LABS: HEMOGLOBIN 9.3 g/dL (11.0-16.0)
--- NOTE | 2017-01-09 05:18 | NUR ---
Significant Event: HAS DENIED PAIN ALL NIGHT. THE FAMILY NOTICED SOME EDEMA IN HIS FEET. HIS FEET HAVE A 2+ EDEMA WELL HIS ANKLES AND A 1-2+ IN HIS LEGS. REMAINS ON 2L O2 ALL NIGHT. RESTING OFF AND ON ALL NIGHT. Follow up:
[2017-01-09 05:41] LABS: HEMATOCRIT 28.5 % (37.0-53.0); HEMOGLOBIN 8.9 g/dL (11.0-16.0); MCH 27.5 pg (27.0-34.0); MCHC 31.2 gm/dL (32.0-36.5); PLATELET COUNT 21 K/uL (150-450); RBC 3.24 M/uL (3.50-5.50); RDW-CV 18.7 % (11.9-14.6); WBC 18.9 K/uL (4.0-11.0)
[2017-01-09 05:53] LABS: ALBUMIN 2.1 gm/dL (3.5-5.0); ANION GAP 12.9 (10.0-19.0); MAGNESIUM 1.6 mg/dL (1.3-2.6); PHOSPHORUS 2.6 mg/dL (2.5-4.9); POTASSIUM 3.9 mMol/L (3.7-5.1)
[2017-01-09 05:57] LABS: CALCIUM 7.4 mg/dL (8.5-10.5)
[2017-01-09 06:44] LABS: LYMPHOCYTE # 1.9 K/uL (0.8-4.0); LYMPHOCYTE % 10 %; MONOCYTE # 13.2 K/uL (0.0-1.0); SEGMENTED NEUTROPHIL % 5 %
--- NOTE | 2017-01-09 15:37 | NUR ---
Significant Event: pt still on 2liters 02. No c/o pain. Pt family here with him today. Palliative Suzanne nurse talks to family/pt about hospice. Pt not want to eat or drink much at all today. Dr Caldwell orders K+, change ivf, MG and enzymes, and picc line this afternoon. Follow up:
[2017-01-10 04:37] LABS: ALBUMIN 2.1 gm/dL (3.5-5.0); ANION GAP 14.1 (10.0-19.0); CALCIUM 7.5 mg/dL (8.5-10.5); MAGNESIUM 1.6 mg/dL (1.3-2.6); PHOSPHORUS 2.3 mg/dL (2.5-4.9); POTASSIUM 4.1 mMol/L (3.7-5.1)
[2017-01-10 04:56] LABS: HEMATOCRIT 27.4 % (37.0-53.0); HEMOGLOBIN 8.5 g/dL (11.0-16.0); MCH 27.1 pg (27.0-34.0); MCV 87.3 fl (83.0-98.0); RBC 3.14 M/uL (3.50-5.50); RDW-CV 18.9 % (11.9-14.6)
[2017-01-10 05:02] LABS: WBC 18.9 K/uL (4.0-11.0)
[2017-01-10 05:03] LABS: PLATELET COUNT 16 K/uL (150-450)
[2017-01-10 06:09] LABS: LYMPHOCYTE % 16 %
[2017-01-10 06:17] LABS: BANDED NEUTROPHIL # 0.4 K/uL (0.0-0.1); BANDED NEUTROPHILS % 2 %
[2017-01-10 06:19] LABS: ABSOLUTE NEUTROPHIL CT (ANC) 3.2 K/uL (1.4-9.0); MONOCYTE # 9.5 K/uL (0.0-1.0); SEGMENTED NEUTROPHIL # 2.8 K/uL (1.4-9.0); SEGMENTED NEUTROPHIL % 15 %
--- NOTE | 2017-01-10 07:06 | NUR ---
Significant Event: DISORIENTED TO TIME/PACE. PATIENT CONFUSED AND PULLING ON CORDS AND TRYING TO GET OUT OF BED. HALDOL GIVEN X1. CT OF HEAD ORDERED.RESULTS PENDING. BED ALARM ON. TURNED SELF. AFEBRILE. VSS ON 3L.IV TO L) HAND AND FA SL. PICC TO UPPER L) ARM WITH 40 MEQ KCL RUNNING AT 100 ML/H. FLUSES WITH GOOD BLOOD RETURN. AREA IS BRUISED. CONTINUE WITH IV MAXIPIME. DENIES PAIN. INCONTINENT OF STOOL AN URINE THROUGHOUT THE SHIFT. DRESSING TO L) CHEST C/D/I. Follow up: CONTINUE WITH PLAN OF CARE.
--- NOTE | 2017-01-10 16:24 | NUR ---
Significant event: Drowsy today, opens eyes for short period of time. Requires a lot of cues. Disoriented to time and place today. Only stating 1-2 words at the most, no complete sentences. Becomming increasingly restless as day progresses. Ativan given at 1600, 0.5 mg PO. On 3 L of oxygen, lungs are clear and diminished. Bowel sounds are active, with 2 loose incontinent stools, small. Patient did pick at mole on back of head, dressing applied. L) PICC patent, good blood return, bruising around site has not changed since this AM. Decreased appetite persists. Follow Up: Continue current POC, Bed alarm at all times.
[2017-01-11 06:12] LABS: ALBUMIN 2.2 gm/dL (3.5-5.0); CALCIUM 7.7 mg/dL (8.5-10.5); MAGNESIUM 1.6 mg/dL (1.3-2.6); PHOSPHORUS 2.8 mg/dL (2.5-4.9)
[2017-01-11 06:29] LABS: HEMOGLOBIN 8.1 g/dL (11.0-16.0); MCH 27.6 pg (27.0-34.0); MCHC 31.2 gm/dL (32.0-36.5); MCV 88.4 fl (83.0-98.0); RBC 2.94 M/uL (3.50-5.50); RDW-CV 19.3 % (11.9-14.6); WBC 15.8 K/uL (4.0-11.0)
[2017-01-11 06:30] LABS: PLATELET COUNT 14 K/uL (150-450)
--- NOTE | 2017-01-11 06:36 | NUR ---
Significant Event: Patient has been disoriented x3 throughout the night. Alerts easily to voice. Has not been able to answer any questions throughout the night and has not followed any commands. Uncooperative with cares. Family in the room throughout most of the night and requested that Dr. Easley be called in order to obtain an additional order for a medication to alleviate his restlessness. Patient did become agitated when he needed to void but he would calm down after a few minutes. I explained to family regarding the dangers of overmedicating the patient with too many sedating medications but they still wanted the doctor called. I spoke with Dr. Easley regarding patient's concerns and he did change the frequency of PRN Ativan from q.4hr PRN to q.3hr PRN. Patient has been requiring PRN Ativan nearly around the clock. Has been incontinent throughout the night. He has been consistently taking off NC and leads. Refused to keep gown on. He did have a high SBP of 216 earlier, Dr. Li notified and she ordered x1 dose of 0.4 mg SL nitroglycerin. SBP came down to 166 afterwards. Other VSS. On 2-3L O2. Follow up: Monitor patient's mental status.
[2017-01-11 07:15] LABS: BANDED NEUTROPHIL # 0.5 K/uL (0.0-0.1); BANDED NEUTROPHILS % 3 %
[2017-01-11 07:19] LABS: ABSOLUTE NEUTROPHIL CT (ANC) 2.4 K/uL (1.4-9.0); LYMPHOCYTE # 2.7 K/uL (0.8-4.0); LYMPHOCYTE % 17 %; MONOCYTE # 8.1 K/uL (0.0-1.0); SEGMENTED NEUTROPHIL # 1.9 K/uL (1.4-9.0); SEGMENTED NEUTROPHIL % 12 %
--- NOTE | 2017-01-11 13:44 | NUR ---
A - PT SCREENED D/T LOS. DISORIENTED. DECREASED APPETITE. HT: 73" WT: 194# BMI: 25.4 LABS: NA 150, BUN/CR 17/2.0, ALB 2.2, PREALB 8.0, WBC 15.8, HGB/HCT 8.1/26.0 MEDS: KCL, D5NS, FLORASTOR, PROTONIX, SYNTHROID, BOWEL/NAUSEA DIET: GLUTEN FREE. INTAKE: REF-25% NEEDS: 8350-0512 KCAL (20-25 KCAL/KG), 88-106 G PRO (1-1.2 G/KG), 2640 ML FLUID (30 ML/KG) D - INADEQUATE NUTRIENT INTAKE R/T DECREASED APPETITE AEB INTAKE RECORD. I - GOAL FOR INTAKE > 25 BY NEXT ASSESSMENT. WILL ADD ENSURE TID TO INC NUTRIENT INTAKE. M/E - WILL MONITOR INTAKE AND F/U IN 3-4 DAYS.
--- NOTE | 2017-01-11 16:36 | NUR ---
Significant event: Disoriented x3, does not respond to most questions. HR 90-110's. SBP 130-160's. Afebrile. On 3L NC. Lung sounds slightly coarse at times, with expiratory wheezes, occasional cough. PRN duonebs and 1x dose of dexamethasone given to help patient with shortness of breath. Dr. Li in to talk with family, patient actively dying, comfort cares are now in place. Family at bedside. Ativan given at 1020, attempted to give at 1500 patient would not swallow dose. Patient is currently resting in the bed. Follow Up: Continue current POC
--- NOTE | 2017-01-12 06:44 | NUR ---
Significant Event: Patient has been mainly unresponsive throughout the night. Does not answer any questions and does not follow any commands. Does not converse either. Moans while awake and when he becomes restless. Sometimes he does open his eyes to sound or physical stimuli. Patient has slept throughout most of the night except when he becomes agitated, in which morphine has helped the most. Patient also becomes restless when he becomes incontinent of urine and needs to be cleaned. Morphine given x3, no other meds given. and son have been at bedside throughout the night. Continues on 3L O2. He has not pulled at anything throughout the night. Follow up: Continue to keep patient and family comfortable.
--- NOTE | 2017-01-12 10:30 | NUR ---
Reviewed notes from the w/e and made referral to TCU. Spoke with [facility] and she says does not want TCU and they no longer are thinking they can manage him at home. Spoke with , Lin and a couple of granddaughters. She says their son from [place] is here so all their children and most of their grandchildren have been here over the last few days. Talked with her about other facility options for comfort cares. She tells me she does not want TCU due to previouw experience there. Talked about options in [place]. She really does not want him to go to a snf. She says she can't care for him at home the way he is now. Told her may have to look at snf in the next few days. Will follow.
--- NOTE | 2017-01-12 16:49 | NUR ---
Significant Event: PATIENT ON COMFORT CARES, SLEEPS THROUGHOUT THE SHIFT. DOES RESPOND AT TIMES TO VOICE. VSS ON 3L PER NC. REPOSITIONED X2 THIS SHIFT. PT. DID HAVE AN EPISODE WHERE HE SAT UP AT THE SIDE OF THE BED FOR ABOUT 10 MINUTES AROUND 1140, THEN LAYED BACK DOWN IN BED. MORPHINE GIVEN TODAY X3 LAST AT 1448. FAMILY AT BEDSIDE. Follow up: CONTINUE WITH POC.
--- NOTE | 2017-01-13 05:13 | NUR ---
Patient on comfort cares. Able to turn himslef at this time. Slept through shift. Some restlessness, relieved by morphine, which was given x 3 this shift. Incontinent of urine x 2 last night. No BM this shift. No peripheral IV sites. Double lumen PICC, both lines flush and have blood return. 3ltr O@ via WI. Family at bedside and in waiting area.
--- NOTE | 2017-01-13 10:28 | NUR ---
PT REASSESSED AT NO NUTRITION RISK D/T COMFORT MEASURES ORDER. WILL PROVIDE FOOD/FLUIDS PT ACCEPTS/TOLERATES, AND ASSIST NEEDED.
--- NOTE | 2017-01-13 17:15 | NUR ---
Significant Event: NO BIG CHANGES. PT IS ALITTLE MORE MOTTLED IN HIS LOWER LEGS THAN HE WAS EARLIER THIS SHIFT. KNEES, ELBOWS AND CHEEKS SLIGHTLY MORE PURPLE. ABOUT THE SAME RESPONSIVENESS ALL THIS SHIFT. ONLY ONE VOID LATER TODAY, THAT IS A CREDIT FOR NEXT SHIFT. IN ROOM ALL DAY, OTHER FAMILY MEMBERS IN AND OUT. MS 2 MG X4 THIS SHIFT. Follow up:MONITOR
--- NOTE | 2017-01-14 05:34 | NUR ---
Comfort cares. Some mottling BLE. VS stable - once per shift. 3 urine incontinences this shift. Becomes restless when wet. Morphine x 4 this shift. Large attentive family at bedside and in waiting area. 3 ltrs O2. Picc in upper left arm. Turns self.
--- NOTE | 2017-01-14 12:30 | NUR ---
Spoke with patient's , Lin and a granddaughter regarding skilled care. Lin is upset that he can't stay in the hospital. She says they are going to move him to 2nd floor and he can stay there. Explained to her the move to 2nd floor would be a move to [facility] and the healthcare technician on that unit will talk to her about skilled care also. Told her there is construction and noise on [facility] and that is why they have not moved him yet. She asks about TCU. Told her it was my understanding from our earlier converstations she did not want TCU. She says [place] better [place] a [place] [facility]. Told her I can put him on the TCU list but at this time they are not accepting any admissions. Told her we do need to talk about skilled facilities in the community. She says she doesn't like things thrown at her. Reminded her I talked to her on Thursday and told her in a couple of days we would need to talk and that is why we are talking about placement now. Explained to her I have called the [facility] and [facility] and [facility] do not have an appropriate room for him. Told her [facility] is willing to assess him and would probably give him a room without a roommate. I have left a [facility] for [facility] staff. Tried to explain to her medicare coverage for comfort cares/end of life cares. She wants in writing exactly what they will cover and how long. Explained to her criteria for skilled care and it is the facility that determines if they meet that criteria not me. Talked with her about being private pay when/if medicare does not cover. Talked to her about hospice and what they cover. She wants in writing what they costs at the [facility] would be. Told her I am sure they will cover room and board cost when they assess him. Told her they can't give an exact cost as they don't know everything he will need. She says they should be able to do that. She says she can't talk to her children about skilled care until she has something in writing to show them. She asks about being able to be with patient at [facility]. Told her they try to have end of life cares patient in their own room if possible to allow family to visit. She asks if family can stay all night. Told her that is up to the facility and their policy and I am not sure if they will let her stay. She says 6-7 of them have been staying at night and they will all want to stay. Told her that is a question she can ask when the facility comes to assess him. Told her I doubt they will let that many stay even if he has his own bed. Told her I know they have guidelines regarding that and they can discuss it with her but they have to look out for other residents safety etc. She says needs to talk with her about when he is moving as she prefers he stays here. Told her I don't know when he will transfer but I have to work on the plan and have it in place prior to him being ready to transfer. Asks what day he will transfer. Told her he can't transfer until we have a safe discharge plan and I need her help in deciding on facilities. She agrees I can send referral to [facility] and to [facility] if they have an appropriate room. She says to bring her information that is in writing and specific. Told her I will work on getting what I can for her but I can not provide information for the facilities. Call from Zoie at [facility] and they do have a room. Information faxed to Sissy at [facility] and Zoie at [facility]. Will follow.
--- NOTE | 2017-01-14 15:34 | NUR ---
Significant Event:Arouses with stimulation, opens eyes, sticks out tongue, mumbles yes and no. Lethargic, bare minimum verbal response. Turns self in bed at times. WOC here to see. Lotion on skin and aloe to coccyx and feet as family desire. refuses offer to lift patient to the recliner. Turned in bed q2h with 2 assist. Irregualr heart rate. Respiratory rate 8/min with 10-30 second apnea on 3L/NC is 94%. Lungs diminished. refuses meals, " he hasn't eaten in 3 days and nights." NO BM today, hypoactive bowel sounds. Inc void moderate amount concentrated x 3. Lots of bruising, petichiae and old scratch olson to torso and limbs. Bathed per family request. PICC line with 2 lumens patent in both, dressing changed. Follow up: Ask before assessing or performing any cares. Daily vital signs.
--- NOTE | 2017-01-15 04:16 | NUR ---
Significant Event: Patient does not talk, but can mumble at times in response to questions. VSS on 3L NC. Patient's respiratory rate 12-14. HR 90s. SBP 115-133. Morphine given x3 for pain at family's request. 2 incontinent voids this shift. Patient did not eat dinner. Family is at bedside and in waiting room. Follow Up: Continue comfort cares
--- NOTE | 2017-01-15 12:45 | NUR ---
This a.m. spoke with Jessica on TCU and no beds at this time. Told her says she will consider TCU. Jessica will discuss with Neisha and Ivett if they will consider patient. Called and spoke with Sissy at [facility] and they will consider patient. They would not be able to skill patient and he would be private pay. She will come assess this afternoon and bring charge structure with her. Called Zoie at [facility] and she needs to talk with rest of team if they would consider him and if would be private pay or not. Talked to patient's nurse and reviewed chart. Called and talked to Dr. Kumari and he anticipates patient only has a day or two to live and says to not pursue placement at this time. Talked with patient's and son and daughter. Updated her on plans to not look for placement at this time. She asks about TCU, answered her questions and update her. Called and updated Sissy at [facility] and will call Zoie and update her. Will follow.
--- NOTE | 2017-01-15 13:29 | NUR ---
Significant Event:Sedated and does not respond except to pain. Family at bedside, refused reposition this morning. Repositioned to L) side at 1045 with assistance of family. Morphine 2mg IVP given at 0755 and 1045 for dyspnea. VSS. Respirations 8 this morning. Petechiae to torso and bilateral arms. Incision closed to R) chest where portacath was removed. Comfort cares. Double lumen picc to L) upper arm. Red lumen does not have blood return but white lumen does. Follow up:Continue plan of care.
--- NOTE | 2017-01-15 19:09 | NUR ---
Significant event: Lethargic, No verbal response, does open eyes when reposistioing, does not track. On 3L NC, Lung sounds clear/diminished. Morphine given x3 this shift per family request, last at 1750. Has begun to have a rattle at shift change, on coming RN will give medication for this. RR 8-12, apenic periods at times. HR 90-100. Follow Up: Continue comfort cares.
== END 2017-01-15 23:17 | disposition expired | DRG 314 ==
LOC: GMED 09:44 → GPCU 11:44
PROVIDERS: Family Medicine; Hospitalist; Internal Medicine Hematology & Oncology; ADMIT Internal Medicine
PROC: 30233R1 Transfusion of Nonautologous Platelets into Peripheral Vein, Percutaneous Approach (ICD-10-PCS; principal; 2017-01-07)
PROC: 02HV33Z Insertion of Infusion Device into Superior Vena Cava, Percutaneous Approach (ICD-10-PCS; 2017-01-09)
PROC: B548ZZA Ultrasonography of Superior Vena Cava, Guidance (ICD-10-PCS; 2017-01-09)
DX: T80.218A Other infection due to central venous catheter, initial encounter (principal); J96.21 Acute and chronic respiratory failure with hypoxia; R65.20 Severe sepsis without septic shock; N17.9 Acute kidney failure, unspecified; D61.810 Antineoplastic chemotherapy induced pancytopenia; C94.80 Other specified leukemias not having achieved remission; E46 Unspecified protein-calorie malnutrition; B95.7 Other staphylococcus as the cause of diseases classified elsewhere; J96.22 Acute and chronic respiratory failure with hypercapnia; A41.9 Sepsis, unspecified organism; J44.9 Chronic obstructive pulmonary disease, unspecified; D69.59 Other secondary thrombocytopenia; T45.1X5A Adverse effect of antineoplastic and immunosuppressive drugs, initial encounter; E87.6 Hypokalemia; Z51.5 Encounter for palliative care; Z87.891 Personal history of nicotine dependence; E86.0 Dehydration; E03.9 Hypothyroidism, unspecified; K21.9 Gastro-esophageal reflux disease without esophagitis; M19.90 Unspecified osteoarthritis, unspecified site; Z66 Do not resuscitate; Z99.81 Dependence on supplemental oxygen
CPT/HCPCS: C1751; J0692; J1100; J1630; J1644; J2020; J2060; J2270; J2405; J3370; J3480; J7040; J7050; P9053; P9058